=== PATIENT | female | born 1955 | race Caucasian/White ===

== ENCOUNTER 2020-06-03 08:48 | Emergency (ER) | payer MEDICARE ==
[2016-07-08 11:00] VITALS: BP 129/72
[~2020-06-03 08:48] MED LIST: AMLO10TA4 PO; ESTR1.25 PO; FENT1PAT21 TP; GABA300C18 PO; GABA600T7 PO; HYDR-2769 PO; HYDR-3135 PO; HYDR12.575 PO; LAMO150T3 PO; LEXAPRO20 MG PO; OXYC1TAB22 PO; TRAZ150T49 PO; TRAZ300T2 PO; ZOLP10TA PO
--- NOTE | 2020-06-03 09:17 | PHYS DOC ---
Past Medical History Past Medical History: COPD, Unknown Past Surgical History: Other Smoking Status: Current Some Day Smoker Alcohol Use: None Drug Use: None General Adult EDM: Chief Complaint: cardiac arrest HPI: HPI: Patient was brought to room by EMS AT 8:49 AM, THIS PHYSICIAN SAW PATIENT AT 8:49 AM . Patient is a 64 year old female who was found to be unresponsive this morning by her family, EMS were called, they found her to be in ventricular fibrillation, they shocked her 4 TIMES, gave her 1 dose of lidocaine, she converted to PEA. Patient was given 3 doses of epinephrine by EMS, was intubated temporary with LMA. Patient was still in PEA upon arrival to ER. At one time during transport, patient was found to have a faint pulse possibly? She has COPD, used CPAP at night. Per her partner, patient took her CPAP off at midnight and that was the last time she was known normal. Review of Systems: Review of Systems: not able to obtain due to condition. Heart Score: Risk Factors: Risk Factors: DM, Current or recent (<one month) smoker, HTN, HLP, family history of CAD, obesity. Risk Scores: Score 0 - 3: 2.5% MACE over next 6 weeks - Discharge Home Score 4 - 6: 20.3% MACE over next 6 weeks - Admit for Clinical Observation Score 7 - 10: 72.7% MACE over next 6 weeks - Early Invasive Strategies Allergies: Allergies: Allergies Coded Allergies Type Severity Reaction Last Updated Verified pentazocine Allergy Intermediate Rash 09/10/14 Yes tolmetin Allergy Intermediate Rash 09/10/14 Yes Physical Exam: PE: Constitutional: Well developed, well nourished, cyanotic, unresponsive, CPR in progress, LMA tube in place HENT: Normocephalic, atraumatic, LMA tube in place. Eyes: fixed and dilated to 6 mm Neck: Normal range of motion, positive bilateral JVD. Cardiovascular NO PULSE, IN PEA. Lungs & Thorax: Bilateral breath sounds WITH BAGGING. Abdomen:NO DISTENTION, no masses, no pulsatile masses. [] Skin: COLD CYANOTIC. Back:ATRAUMATIC Extremities: ATRAUMATIC, Neurologic: UNRESPONSIVE Psychologic: NOT ABLE TO OBTAIN EKG: EKG: [] Radiology/Procedures: Radiology/Procedures: Indication: Respiratory failure Consent: Unable to give consent due to emergent nature. Medications Used: see nursing note Procedure: The patient was placed in the appropriate position. Intubation was performed by this physician, cord wa visualized, ET TUBE # 7.5 CUFF was used, positive color change with END TIDAL CO2 DETECTOR. ET was secured 24 at lip. endotracheal tube. Initial confirmation of placement included bilateral breath sounds, tube fogging, adequate chest rise, adequate pulse oximetry reading. The patient was in cardiac arrest, in PEA. Complications: none. Course & Med Decision Making: Course & Med Decision Making Pertinent Labs and Imaging studies reviewed. (See chart for details) Patient is a 64-year-old female who was found unresponsive this morning by her family, she was in V. tach arrest, EMS shocked her 4 times, gave her epinephrine, upon arrival to ER patient was in PEA, patient was resuscitated by ACLS protocol. No return of circulation, patient was intubated in the ER, patient was in asystole, family was discussed, would like to stop resuscitation. Patient was pronounced by this physician at 9:08 am on 06/03/20. Gali Disclaimer: Gali Disclaimer: This electronic medical record was generated, in whole or in part, using a voice recognition dictation system. Departure Departure Impression: Primary Impression: Cardiac arrest Disposition: 20 (at 9:08 on 06/03/20) Condition: Referrals: BETO URENA (PCP) Justicifation of Admission Dx: Justifications for Admission: Justification of Admission Dx: N/A AUDREY MARI DO Jun 03, 2020 09:17
== END 2020-06-03 09:08 | disposition expired ==
LOC: ER 08:49
DX: I46.9 Cardiac arrest, cause unspecified (principal); J44.9 Chronic obstructive pulmonary disease, unspecified; Z20.818 Contact with and (suspected) exposure to other bacterial communicable diseases; F17.200 Nicotine dependence, unspecified, uncomplicated; Z98.890 Other specified postprocedural states
CPT/HCPCS: 31500; 84484; 92950; 99285; U0003